=== PATIENT | female | born 1985 | race African-American/Black ===

== ENCOUNTER 2017-01-06 05:21 | Emergency (ER) | payer OTHER ==
[~2017-01-06] VITALS: Ht 157.5 cm; Wt 86.4 kg
[2017-01-06] MEDS ORDERED: PENICILLIN V POTASSIUM 500 MG TABLET PO ONE (06:30)
[2017-01-06] MEDS ORDERED: OxyCODONE HCL/ACETAMINOPHEN 5-325 MG TABLET PO ONE (06:30)
[2017-01-06 06:36] VITALS: BP 138/79
== END 2017-01-06 06:39 | disposition home or self-care (01) ==
LOC: EMS 05:24
DX: K02.9 Dental caries, unspecified (principal)
CPT/HCPCS: 99283